=== PATIENT | female | born 1990 | race Hispanic/Latino ===

== ENCOUNTER 2020-06-06 15:53 | Inpatient (IN) | payer OTHER ==
[~2020-06-06] VITALS: Ht 162.6 cm; Wt 117.9 kg
[2020-06-06] MEDS ORDERED: LACTATED RINGERS 1000ML 1,000 ML IV PRN ×2 (16:26→18:18)
[2020-06-06 17:09] LABS: APPEARANCE,URINE Clear (CLEAR); BILIRUBIN,URINE Negative (NEGATIVE); COLOR,URINE Yellow (YELLOW); GLUCOSE, URINE (UA) Negative (NEGATIVE); KETONES,URINE Negative (NEGATIVE); LEUKOCYTE ESTERASE ,URINE Negative (NEGATIVE); NITRATE,URINE Negative (NEGATIVE); OCCULT BLOOD,URINE Negative (NEGATIVE); PH,URINE 7.5 (5.0-8.0); PROTEIN,URINE Negative (NEGATIVE)
[2020-06-06] MEDS ORDERED: ROPIVACAINE 0.2% 100ML VIAL 100 ML EP SCH (18:30)
[2020-06-06] MEDS ORDERED: EPHEDRINE SULFATE 50 MG/ML AMPULE IVP PRN (18:30)
[2020-06-06] MEDS ORDERED: LACTATED RINGERS 500 ML 500 ML IV PRN (18:30)
[2020-06-06] MEDS ORDERED: NALOXONE HCL 0.4 MG/1 ML ML IV PRN (18:30)
[2020-06-06] MEDS ORDERED: OXYTOCIN-LR 20 UNITS/1000 ML 1,000 ML IV SCH (18:30)
[2020-06-06] MEDS ORDERED: BUTORPHANOL TARTRATE 2 MG/ML IVP PRN (18:30)
[2020-06-06 18:43] LABS: HEMATOCRIT 34.9 % (36-48); MEAN CORPUSCULAR HEMOGLOBIN 28.4 pg (27.0-33.0); MEAN CORPUSCULAR HGB CONC 32.7 g/dL (32.0-36.0); RED BLOOD CELL COUNT(AUTO) 4.01 MIL/uL (4.00-5.50); RED CELL DISTRIBUTION WIDTH 14.1 % (11.0-15.5); WHITE BLOOD COUNT (AUTO) 10.4 K/uL (4.8-10.8)
[2020-06-06] MEDS ORDERED: AMPICILLIN 2GM+NS 100ML 100 ML IV SCH (19:00)
[2020-06-06] MEDS: AMPICILLIN 1GM+NS 50ML 50 ML IV SCH (23:14)
[2020-06-07] VITALS (19 sets, daily range): BP systolic 89–130; BP diastolic 47–79
[2020-06-07] MEDS: AMPICILLIN 1GM+NS 50ML 50 ML IV SCH (03:33)
[2020-06-07] MEDS ORDERED: OXYTOCIN 10 USP UNITS/ML 20 UNIT in LACTATED RINGERS 1000ML 1,000 ML IV SCH (04:00)
[2020-06-07] MEDS ORDERED: CALDOLOR 800MG+NS 250ML 250 ML IV PRN ×2 (11:45→16:30)
[2020-06-07] MEDS ORDERED: CEFAZOLIN SODIUM 1 GM VIAL IVP PRN (11:45)
[2020-06-07] MEDS ORDERED: PHENYLEPHRINE HCL 10 MG/ML 1ML VIAL IV ONE (12:05)
[2020-06-07] MEDS ORDERED: DURAMORPH PF1 MG/ML 10ML AMP IV ONE (12:05)
[2020-06-07] MEDS ORDERED: FENTANYL CITRATE PF 50 MCG/1 ML 2ML VIAL ONE (12:05)
[2020-06-07] MEDS ORDERED: ONDANSETRON HCL 4 MG/2 ML VIAL ONE (12:37)
[2020-06-07] MEDS ORDERED: PREN-154 PO (15:01)
[2020-06-07] MEDS ORDERED: EPHEDRINE SULFATE 50 MG/ML AMPULE IVP PRN (16:30)
[2020-06-07] MEDS ORDERED: ONDANSETRON HCL 4 MG/2 ML VIAL IVP PRN (16:30)
[2020-06-07] MEDS ORDERED: LORATADINE 10 MG TABLET PO PRN (16:30)
[2020-06-07] MEDS ORDERED: MEPERIDINE-PF 25 MG/ML SYG IV PRN (16:30)
[2020-06-07] MEDS ORDERED: DiphenhydrAMINE HCL 50 MG/ML VIAL IVP PRN (16:30)
[2020-06-07] MEDS ORDERED: NALOXONE HCL 0.4 MG/1 ML ML IVP PRN ×3 (16:30)
[2020-06-07] MEDS ORDERED: HYDROCODONE/ACETAMINOPHEN 5/325 MG TAB PO PRN (17:15)
[2020-06-07] MEDS ORDERED: MEPERIDINE-PF 75 MG/ML SYG IM PRN (17:15)
[2020-06-07] MEDS ORDERED: DIPH,PERTUSS(ACELL),TET VAC/PF 0.5 ML VIAL IM SCH (17:15)
[2020-06-07] MEDS ORDERED: LANOLIN 30GM OINTMENT TP PRN (17:15)
[2020-06-07] MEDS ORDERED: PROMETHAZINE HCL 25 MG/ML 1ML AMPULE IM PRN (17:15)
[2020-06-07] MEDS ORDERED: BISACODYL 10 MG SUPP.RECT RC PRN (17:15)
[2020-06-07] MEDS ORDERED: ACETAMINOPHEN-CODEINE 300/30MG TAB PO PRN (17:15)
[2020-06-07] MEDS ORDERED: OXYTOCIN-LR 20 UNITS/1000 ML 1,000 ML IV PRN (17:15)
[2020-06-07] MEDS ORDERED: SODIUM CHLORIDE 0.9% 10 ML VIAL IVP PRN (17:15)
[2020-06-07] MEDS: CALDOLOR 800MG+NS 250ML 250 ML IV SCH (21:26)
[2020-06-07] MEDS: SIMETHICONE 80 MG TAB.CHEW PO PRN (21:27)
[2020-06-07] MEDS: DOCUSATE SODIUM 100 MG CAP PO SCH (21:27)
[2020-06-07] MEDS: DEXTROSE 5 %-0.45 % NACL 1,000 ML IV PRN (21:34)
--- NOTE | 2020-06-07 23:35 | NUR ---
ACTIVITY BLADIMIR CARE GIVEN, TELFA APPLIED TO ABD INCISION AND ABD BINDER APPLIED, ASSISTED TO SIDE OF BED TO DANGLE. INSTRUCTED ON USE OF IS, TAKING FLUIDS WELL Addendum: 06/08/20 at 0107 by AUDREY YANG LVN Amended: Links added.
[2020-06-08 04:00] VITALS: BP 127/73
[2020-06-08] MEDS: CALDOLOR 800MG+NS 250ML 250 ML IV SCH (04:04)
--- NOTE | 2020-06-08 06:30 | NUR ---
status/ mario catheter RESTING , NO CONCERNS VOICED, F/C REMOVED , CATHETER INTACT, TOLERATED WELL, INSTRUCTED TO CALL FOR ASSISTANCE WHEN SHE HAS URGE TO VOID Addendum: 06/08/20 at 0708 by AUDREY YANG LVN Amended: Links added.
[2020-06-08 06:56] LABS: HEMATOCRIT 30.8 % (36-48); MEAN CORPUSCULAR HGB CONC 32.8 g/dL (32.0-36.0); MEAN CORPUSCULAR VOLUME 88.5 fL (79-99); RED BLOOD CELL COUNT(AUTO) 3.48 MIL/uL (4.00-5.50); RED CELL DISTRIBUTION WIDTH 14.3 % (11.0-15.5); WHITE BLOOD COUNT (AUTO) 9.6 K/uL (4.8-10.8)
[2020-06-08 07:35] VITALS: BP 122/78
[2020-06-08] MEDS: SIMETHICONE 80 MG TAB.CHEW PO PRN ×2 (08:01→13:30)
[2020-06-08] MEDS: DOCUSATE SODIUM 100 MG CAP PO SCH (08:01)
[2020-06-08] MEDS: DEXTROSE 5 %-0.45 % NACL 1,000 ML IV PRN (08:01)
[2020-06-08] MEDS: ACETAMINOPHEN EXTRA STRENGTH 500 MG TABLET PO PRN ×2 (08:02→14:39)
[2020-06-08 10:16] LABS: HEPATITIS Bs ANTIGEN SCREEN P Negative (Negative)
[2020-06-08 12:06] VITALS: BP 117/62
[2020-06-08] MEDS ORDERED: IBUPROFEN 800 MG TAB PO SCH (12:30)
--- NOTE | 2020-06-08 14:45 | NUR ---
DISCHARGE PT LEFT UNIT VIA WHEELCHAIR, WITH BABY IN ARMS, ACCOMPANIED BY SIGNIFICANT OTHER. DENIED PAIN AND HAD NO COMPLAINTS. BABY STRAPPED IN CAR SEAT. PT AND BABY TRANSPORTED BY PERSONAL VEHICLE.
== END 2020-06-08 14:45 | disposition home or self-care (01) | DRG 788 ==
LOC: LDH 15:53 → WSH 06-07 14:40
PROVIDERS: ADMIT Obstetrics & Gynecology; ATTEND Obstetrics & Gynecology
PROC: 3E0234Z Introduction of Serum, Toxoid and Vaccine into Muscle, Percutaneous Approach (ICD-10-PCS; 2020-06-07)
PROC: 10D00Z1 Extraction of Products of Conception, Low, Open Approach (ICD-10-PCS; principal; 2020-06-07 12:09)
DX: O76 Abnormality in fetal heart rate and rhythm complicating labor and delivery (principal); O99.214 Obesity complicating childbirth; E66.9 Obesity, unspecified; O69.1XX0 Labor and delivery complicated by cord around neck, with compression, not applicable or unspecified; Z23 Encounter for immunization; Z3A.40 40 weeks gestation of pregnancy; Z37.0 Single live birth
CPT/HCPCS: 36415; 59510; 76805; 81003; 85027; 86592; 86850; 86900; 86901; 87340; A4344; G0378; J0290; J0690; J1741; J2274; J2370; J2405; J2590; J3010; J7120